=== PATIENT | male | born 1960 | race Two or more races ===

== ENCOUNTER 2018-06-10 06:35 | Emergency (ER) | payer SELFPAY ==
[2018-06-10] MEDS ORDERED: KETOROLAC TROMETHAMINE 60 MG/2 ML SDV IM ONE (08:21)
[2018-06-10] MEDS ORDERED: LIDOCAINE 5% (700 MG) TRANSDERMAL ADH..PATCH TP ONE (08:21)
--- NOTE | 2018-06-10 08:21 | RADIOLOGY REPORT (SQ) ---
EXAM DESCRIPTION: L SPINE WHOLE COMPLETED DATE/TIME: 06/10/2018 8:01 am REASON FOR STUDY: low back pain, injury COMPARISON: None. NUMBER OF VIEWS: Five views including obliques. TECHNIQUE: AP, lateral, oblique, and sacral radiographic images acquired of the lumbar spine. LIMITATIONS: None. FINDINGS: MINERALIZATION: Normal. SEGMENTATION: Normal. Transitional lumbosacral anatomy. ALIGNMENT: Slight retrolisthesis of L3 on L4. Slight Grade 1 anterolisthesis of L4 on L5. VERTEBRAE: Maintained height. No fracture or worrisome bone lesion. DISCS: Multilevel mild disc disease, and moderate severe to marked disc space narrowing at L4-L5. S mall anterior osteophytes off of the lumbar vertebrae. POSTERIOR ELEMENTS: Moderate facet arthrosis lower lumbar spine. Pedicles are intact. No pars defe ct or posterior arch defects. HARDWARE: None in the spine. PARASPINAL SOFT TISSUES: Normal. PELVIS: Intact as visualized. No fractures or worrisome bone lesions. SI joints intact. OTHER: Mild atherosclerotic changes involving the abdominal aorta. IMPRESSION: 1. Degenerative spondylosis and moderate severe to marked disc disease at L4-5. 2. Transitional lumbosacral anatomy. 3. No acute osseous findings. 4. Additional findings as above. TECHNICAL DOCUMENTATION: JOB ID: [id number] 1923 [employer]- All Rights Reserved Reading location - IP/workstation name: [email or web address]
--- NOTE | 2018-06-10 08:25 | ER Document Report ---
ED General - General Chief Complaint: Back Injury Stated Complaint: BACK INJURY Time Seen by Provider: 06/10/18 07:03 Notes: Patient is a 58-year-old male that presents to the emergency department for chief complaint of low back pain and rib pain after fall. Patient states that he fell yesterday off of a 6 foot ladder, was not always the top, he struck his back, and he did hit his head, but did not lose consciousness, denies having any headache today, or having any neck pain, numbness, weakness or tingling. His main complaint is he is having back pain in his lower right back, as well as pain in his right lower ribs. He states he did develop a bruise after the injury. Has been taking Motrin last dose was around 9 PM last night, which did seem to help, but it persisted through today. He denies having any saddle anesthesia or paresthesias, denies any urinary incontinence, or retention, denies any bowel incontinence. He has been ambulating rather well, but still has the pain. Past Medical History: Denies chronic medical conditions Past Surgical History: Neck surgery, clavicle surgery Social History: Admits to smoking cigarettes, denies alcohol or drug use. Family History: Reviewed and noncontributory for presenting illness Allergies: Reviewed, see documented allergy list. REVIEW OF SYSTEMS: Other than noted above, the 12 point review of systems was reviewed with the patient and were negative, all pertinent findings are included in the HPI. PHYSICAL EXAMINATION: Vital signs reviewed, nursing noted reviewed. GENERAL: Well-appearing, well-nourished and in no acute distress. HEAD: Atraumatic, normocephalic. EYES: Eyes appear normal, extraocular movements intact, sclera anicteric, conjunctiva are normal. PERRLA ENT: nares patent, oropharynx clear without exudates. Moist mucous membranes. NECK: Normal range of motion, supple without lymphadenopathy, no midline tenderness LUNGS: Breath sounds clear to auscultation bilaterally and equal. No wheezes rales or rhonchi. HEART: Regular rate and rhythm without murmurs ABDOMEN: Soft, nontender, normoactive bowel sounds. No rebound, guarding, or rigidity. No masses appreciated. Back: There is no midline tenderness to the thoracic or lumbar spine, there is mild paraspinal tenderness to the lower thoracic spine on the left as well as the paraspinal muscles of the lumbar spine on the left. There is a circular area of ecchymosis and erythema over the left lower ribs posteriorly, that is tender to palpate, no large hematoma appreciated, no step-off or deformity EXTREMITIES: Nontender, good range of motion, no pitting or edema. NEUROLOGICAL: No focal neurological deficits. Moves all extremities spontaneously Motor and sensory grossly intact on exam. PSYCH: Normal mood, normal affect. SKIN: Warm, Dry, normal turgor, no rashes or lesions noted on exposed skin TRAVEL OUTSIDE OF THE [place] IN LAST 30 DAYS: No - Related Data Allergies/Adverse Reactions: codeine Allergy (Verified 06/10/18 08:12) Past Medical History - Social History Smoking Status: Current Every Day Smoker Chew tobacco use (# tins/day): No Frequency of alcohol use: None Drug Abuse: None Family History: Reviewed & Not Pertinent Patient has suicidal ideation: No Patient has homicidal ideation: No Renal/ Medical History: Denies: Hx Peritoneal Dialysis Past Surgical History: Reports: Hx Oral Surgery - rotor cuff, neck Physical Exam - Vital signs Vitals: Temp Pulse Resp BP Pulse Ox 97.9 F 83 20 124/67 94 06/10/18 06:40 06/10/18 06:40 06/10/18 06:40 06/10/18 06:40 06/10/18 06:40 Course - Re-evaluation Re-evalutation: Patient seen and examined vital signs reviewed. Patient was evaluated and treated as appropriate for the patient's presenting symptoms and complaint, with consideration of any critical or life threatening conditions that may be associated with their obtained history and exam as noted above. Patient was treated with Lidoderm patch, Toradol IM The patient was re-evaluated and was improved and stable, reviewed imaging of the lumbar spine which is negative for any acute bony injury, degenerative disc disease noted. Evaluation was most consistent with rib contusion, low back pain after fall, patient will be discharged with prescription for anti-inflammatory as well as muscle relaxer, advised warm and cool compresses and to follow-up with her primary care physician. Plan of care was discussed with the patient at this point, after careful consideration I feel that that patient can be discharged from the emergency department, the patient was educated treatments and reasons to return to the emergency department based on their presumed diagnosis as noted above, they were advised to followup with a primary care physician in 2-3 days. Patient was agreeable to plan of care. *Note is created using voice recognition software and may contain spelling, syntax or grammatical errors. Lumbar Spine X-Ray 06/10/18 07:47 IMPRESSION: 1. Degenerative spondylosis and moderate severe to marked disc disease at L4-5. 2. Transitional lumbosacral anatomy. 3. No acute osseous findings. 4. Additional findings as above. - Vital Signs Vital signs: Temp Pulse Resp BP Pulse Ox 97.9 F 72 20 121/86 H 96 06/10/18 06:40 06/10/18 08:43 06/10/18 06:40 06/10/18 08:43 06/10/18 08:43 Discharge - Discharge Clinical Impression: Rib contusion Qualifiers: Encounter type: initial encounter Laterality: right Qualified Code(s): S20.211A - Contusion of right front wall of thorax, initial encounter Back pain Qualifiers: Back pain location: low back pain Chronicity: acute Back pain laterality: left Sciatica presence: without sciatica Qualified Code(s): M54.5 - Low back pain Condition: Stable Disposition: HOME, SELF-CARE Instructions: Ice Packs ([facility]), Rib Contusion ([facility]) Additional Instructions: Please take the medications as prescribed, and please follow-up with the primary care physician, you can also use warm or cool compresses for 20 minutes on and 20 minutes off. Please take deep breaths as much as possible to avoid developing pneumonia. Prescriptions: Methocarbamol [Robaxin 500 mg Tablet] 500 mg PO TID PRN #15 tablet PRN Reason: back pain RX: Naproxen [Naprosyn] 500 mg PO BID #30 tablet Referrals: JAYSON ANDRADE MD [ACTIVE STAFF] - Follow up in 3-5 days (or your primary care. )
[2018-06-10 08:51] VITALS: BP 121/86
== END 2018-06-10 08:50 | disposition home or self-care (01) ==
LOC: ER 06:35
DX: S20.211A Contusion of right front wall of thorax, initial encounter (principal); M54.5 Low back pain; W17.89XA Other fall from one level to another, initial encounter; F17.200 Nicotine dependence, unspecified, uncomplicated
CPT/HCPCS: 99283; 96372; 72110; J1885